=== PATIENT | male | born 1965 | race Caucasian/White ===

== ENCOUNTER 2017-07-24 22:02 | Emergency (ER) | payer SELFPAY ==
[~2017-07-24] VITALS: Ht 175.3 cm; Wt 89.1 kg
[2017-07-24 22:04] VITALS: BP 144/100; PULSE 95; RESP 20; TEMP 98.3; O2SAT 97
[2017-07-24] MEDS ORDERED: SERO25TA PO (22:20)
[2017-07-24] MEDS ORDERED: CLON1 PO (22:20)
[2017-07-24] MEDS ORDERED: DEPA250T2 PO (22:20)
[2017-07-24 22:22] VITALS: BP 136/90; PULSE 95; RESP 20; O2SAT 97
[2017-07-24] MEDS ORDERED: SODIUM CHLORIDE 0.9% FLUSH 10 ML FLUSH IVF PRN (22:30)
--- NOTE | 2017-07-24 22:47 | RADRPT ---
EXAM DATE: 07/24/2017 10:41 PM EDT AGE/SEX: 52 years / Male INDICATIONS: Chest pain. CLINICAL DATA: This is the patient's initial encounter. Patient reports that signs and symptoms have been present for 1 day and indicates a pain score of Nonresponsive. MEDICAL/SURGICAL HISTORY: . Unobtainable. . Unobtainable. COMPARISON: No prior [facility] exams available for comparison. FINDINGS: A single AP view of the chest demonstrates the lungs to be symmetrically aerated without evidence of mass, infiltrate or effusion. Minimal linear scarring or atelectasis left lung base. The cardiomedias tinal contours are unremarkable. Osseous structures are intact. CONCLUSION: Minimal left basilar scarring or atelectasis. Exam otherwise unremarkable. Electronically signed by: Benigno Hermosillo MD 07/24/2017 10:45 PM EDT
[2017-07-24 22:50] LABS: AUTOMATED NEUTROPHIL # 6.3 TH/MM3 (1.8-7.7); BASOPHIL # 0.1 TH/MM3 (0-0.2); BASOPHIL % 0.6 % (0.0-2.0); EOSINOPHIL # 0.1 TH/MM3 (0-0.4); EOSINOPHIL % 1.5 % (0.0-4.0); HEMATOCRIT 41.4 % (39.0-51.0); HEMOGLOBIN 13.9 GM/DL (13.0-17.0); LYMPH % 19.1 % (9.0-44.0); LYMPHOCYTE # 1.8 TH/MM3 (1.0-4.8); MEAN CELL VOLUME 92.3 FL (80.0-100.0); MEAN CORPUSCULAR HEMOGLOBIN 31.1 PG (27.0-34.0); MEAN CORPUSCULAR HGB CONC 33.7 % (32.0-36.0); MEAN PLATELET VOLUME 8.8 FL (7.0-11.0); MONO % 11.6 % (0.0-8.0); MONOCYTE # 1.1 TH/MM3 (0-0.9); NEUT % 67.2 % (16.0-70.0); PLATELET COUNT 208 TH/MM3 (150-450); RED BLOOD COUNT 4.48 MIL/MM3 (4.50-5.90); RED CELL DISTRIBUTION WIDTH 14.6 % (11.6-17.2); WHITE BLOOD COUNT 9.4 TH/MM3 (4.0-11.0)
[2017-07-24 23:06] LABS: BACTERIA, URINE RARE /hpf; BLOOD, URINE NEG (NEG); GLUCOSE,URINE NEG (NEG); KETONE, URINE 40 mg/dL (NEG); MUCUS URINE FEW /lpf (OCC); NITRITE,URINE NEG (NEG); PH, URINE 5.5 (5.0-8.5); URINE COLOR YELLOW (YELLW/STRAW); URINE LEUKOCYTE ESTERASE NEG (NEG)
[2017-07-24 23:10] LABS: BILIRUBIN, URINE NEG (NEG)
[2017-07-24 23:24] LABS: ALKALINE PHOSPHATASE 61 U/L (45-117); TOTAL BILIRUBIN ADULT 0.7 MG/DL (0.2-1.0); TOTAL PROTEIN 8.6 GM/DL (6.4-8.2); TROPONIN I LESS THAN 0.02 NG/ML (0.02-0.05)
--- NOTE | 2017-07-24 23:25 | PD ---
HPI Chief Complaint: Chest Pain Time Seen by Provider: 22:19 Travel History International Travel<30 days: No Contact w/Intl Traveler<30days: No Traveled to known affect area: No History of Present Illness HPI Patient is a 52-year-old male presenting to the emergency department for evaluation of chest pain. He states he feels as if something is inside of his chest moving around. He relates it to carpal tunnel surgery that he had years ago. He states he feels as if he is been violated, he reports that he lost time when he was taken away for several days. The chest pain has been ongoing for some time. He denies any radiation of the chest pain. He denies any nausea , vomiting, diaphoresis, shortness of breath, headache. He reports a remote history of methamphetamine use but states it was over a year ago. He denies any visual or auditory hallucinations. Patient does not rate his pain. He is vague in his symptom description. His thoughts are not organized. PFSH Past Medical History Bipolar Disorder: Yes Diabetes: Yes Patient Takes Glucophage: No Psychiatric: Yes Tetanus Vaccination: Unknown Influenza Vaccination: No Past Surgical History Other Surgery: Yes (carpal tunnel rt) Social History Alcohol Use: No Tobacco Use: Yes Substance Use: No Allergies-Medications (Allergen,Severity, Reaction): Coded Allergies: No Known Allergies (Verified Allergy, Unknown, 07/24/17) Reported Meds & Prescriptions Reported Meds & Active Scripts Active Reported Klonopin (Clonazepam) 1 Mg Tab 1 Mg PO TID Seroquel (Quetiapine Fumarate) 25 Mg Tab 25 Mg PO HS Depakote DR (Divalproex Sodium) 250 Mg Tabdr 250 Mg PO BID Review of Systems Except as stated in HPI: all other systems reviewed are Neg HENT: No: Headaches Cardiovascular: Positive: Chest Pain or Discomfort Respiratory: No: Shortness of Breath Gastrointestinal: No: Nausea Musculoskeletal: No: Myalgias Neurologic: No: Dizziness, Syncope Psychiatric: Positive: Disorder of Thought, Mood Disorder Physical Exam Narrative GENERAL: Well-developed, well-nourished, alert male. Presenting in no acute distress. SKIN: Warm and dry. HEAD: Atraumatic. Normocephalic. EYES: Pupils equal and round. No scleral icterus. No injection or drainage. ENT: No nasal bleeding or discharge. Mucous membranes pink and moist. NECK: Trachea midline. No JVD. CARDIOVASCULAR: Regular rate and rhythm. RESPIRATORY: No accessory muscle use. Clear to auscultation. Breath sounds equal bilaterally. GASTROINTESTINAL: Abdomen soft, non-tender, nondistended. Hepatic and splenic margins not palpable. MUSCULOSKELETAL: Extremities without clubbing, cyanosis, or edema. No obvious deformities. NEUROLOGICAL: Awake and alert. No obvious cranial nerve deficits. Motor grossly within normal limits. Five out of 5 muscle strength in the arms and legs. Normal speech. PSYCHIATRIC: Appropriate mood and affect; insight and judgment normal. Disorganized thoughts, appears to have a level of paranoia. Data Data Last Documented VS Vital Signs Date Time Temp Pulse Resp B/P (MAP) Pulse Ox O2 Delivery O2 Flow Rate FiO2 07/24/17 22:22 95 20 136/90 (105) 97 Room Air 07/24/17 22:04 98.3 Orders Orders Complete Blood Count With Diff (07/24/17 22:28) Comprehensive Metabolic Panel (07/24/17 22:28) Thyroid Stimulating Hormone (07/24/17 22:28) Urinalysis - C+S If Indicated (07/24/17 22:28) Iv Access Insert/Monitor (07/24/17 22:28) Ecg Monitoring (07/24/17 22:28) Valproic Acid (Depakene) (07/24/17 22:28) Psych Screen (07/24/17 22:28) Sodium Chloride 0.9% Flush (Ns Flush) (07/24/17 22:30) Drug Screen, Random Urine (07/24/17 22:28) Alcohol (Ethanol) (07/24/17 22:28) Salicylates (Aspirin) (07/24/17 22:28) Tylenol (Acetaminophen) (07/24/17 22:28) Troponin I (07/24/17 22:28) Ckmb (Isoenzyme) Profile (07/24/17 22:28) Electrocardiogram (07/24/17 ) Chest, Single Ap (07/24/17 ) CKMB (07/24/17 22:37) CKMB% (07/24/17 22:37) Sodium Chlor 0.9% 1000 Ml Inj (Ns 1000 M (07/25/17 00:00) Labs Laboratory Tests Test 07/24/17 22:37 White Blood Count 9.4 TH/MM3 Red Blood Count 4.48 MIL/MM3 Hemoglobin 13.9 GM/DL Hematocrit 41.4 % Mean Corpuscular Volume 92.3 FL Mean Corpuscular Hemoglobin 31.1 PG Mean Corpuscular Hemoglobin Concent 33.7 % Red Cell Distribution Width 14.6 % Platelet Count 208 TH/MM3 Mean Platelet Volume 8.8 FL Neutrophils (%) (Auto) 67.2 % Lymphocytes (%) (Auto) 19.1 % Monocytes (%) (Auto) 11.6 % Eosinophils (%) (Auto) 1.5 % Basophils (%) (Auto) 0.6 % Neutrophils # (Auto) 6.3 TH/MM3 Lymphocytes # (Auto) 1.8 TH/MM3 Monocytes # (Auto) 1.1 TH/MM3 Eosinophils # (Auto) 0.1 TH/MM3 Basophils # (Auto) 0.1 TH/MM3 CBC Comment DIFF FINAL Differential Comment Urine Color YELLOW Urine Turbidity CLEAR Urine pH 5.5 Urine Specific [place] 1.033 Urine Protein 30 mg/dL Urine Glucose (UA) NEG mg/dL Urine Ketones 40 mg/dL Urine Occult Blood NEG Urine Nitrite NEG Urine Bilirubin NEG Urine Urobilinogen 2.0 MG/DL Urine Leukocyte Esterase NEG Urine RBC 1 /hpf Urine WBC 1 /hpf Urine Bacteria RARE /hpf Urine Mucus FEW /lpf Microscopic Urinalysis Comment CULT NOT INDICATED Blood Urea Nitrogen 35 MG/DL Creatinine 0.92 MG/DL Random Glucose 66 MG/DL Total Protein 8.6 GM/DL Albumin 3.9 GM/DL Calcium Level 8.7 MG/DL Alkaline Phosphatase 61 U/L Aspartate Amino Transf (AST/SGOT) 38 U/L Alanine Aminotransferase (ALT/SGPT) 32 U/L Total Bilirubin 0.7 MG/DL Sodium Level 141 MEQ/L Potassium Level 3.5 MEQ/L Chloride Level 107 MEQ/L Carbon Dioxide Level 22.5 MEQ/L Anion Gap 12 MEQ/L Estimat Glomerular Filtration Rate 87 ML/MIN Total Creatine Kinase 551 U/L Creatine Kinase MB 5.3 NG/ML Creatine Kinase MB % 1.0 % Troponin I LESS THAN 0.02 NG/ML Thyroid Stimulating Hormone 3rd Gen 0.890 uIU/ML Salicylates Level 3.1 MG/DL Urine Opiates Screen NEG Acetaminophen Level LESS THAN 2.0 MCG/ML Urine Barbiturates Screen NEG Valproic Acid (Depakene) Level 7 MCG/ML Urine Amphetamines Screen POS Urine Benzodiazepines Screen NEG Urine Cocaine Screen NEG Urine Cannabinoids Screen NEG Ethyl Alcohol Level LESS THAN 3 MG/DL MDM Medical Decision Making Medical Screen Exam Complete: Yes Emergency Medical Condition: Yes Interpretation(s) Last Impressions Chest X-Ray 07/24/17 0000 Signed Impressions: CONCLUSION: Minimal left basilar scarring or atelectasis. Exam otherwise unremarkable. Laboratory Tests Test 07/24/17 22:37 White Blood Count 9.4 TH/MM3 Red Blood Count 4.48 MIL/MM3 Hemoglobin 13.9 GM/DL Hematocrit 41.4 % Mean Corpuscular Volume 92.3 FL Mean Corpuscular Hemoglobin 31.1 PG Mean Corpuscular Hemoglobin Concent 33.7 % Red Cell Distribution Width 14.6 % Platelet Count 208 TH/MM3 Mean Platelet Volume 8.8 FL Neutrophils (%) (Auto) 67.2 % Lymphocytes (%) (Auto) 19.1 % Monocytes (%) (Auto) 11.6 % Eosinophils (%) (Auto) 1.5 % Basophils (%) (Auto) 0.6 % Neutrophils # (Auto) 6.3 TH/MM3 Lymphocytes # (Auto) 1.8 TH/MM3 Monocytes # (Auto) 1.1 TH/MM3 Eosinophils # (Auto) 0.1 TH/MM3 Basophils # (Auto) 0.1 TH/MM3 CBC Comment DIFF FINAL Differential Comment Urine Color YELLOW Urine Turbidity CLEAR Urine pH 5.5 Urine Specific [place] 1.033 Urine Protein 30 mg/dL Urine Glucose (UA) NEG mg/dL Urine Ketones 40 mg/dL Urine Occult Blood NEG Urine Nitrite NEG Urine Bilirubin NEG Urine Urobilinogen 2.0 MG/DL Urine Leukocyte Esterase NEG Urine RBC 1 /hpf Urine WBC 1 /hpf Urine Bacteria RARE /hpf Urine Mucus FEW /lpf Microscopic Urinalysis Comment CULT NOT INDICATED Salicylates Level 3.1 MG/DL Urine Opiates Screen NEG Urine Barbiturates Screen NEG Urine Amphetamines Screen POS Urine Benzodiazepines Screen NEG Urine Cocaine Screen NEG Urine Cannabinoids Screen NEG Vital Signs Date Time Temp Pulse Resp B/P (MAP) Pulse Ox O2 Delivery O2 Flow Rate FiO2 07/24/17 22:22 95 20 136/90 (105) 97 Room Air 07/24/17 22:20 Room Air 07/24/17 22:04 98.3 95 20 144/100 (115) 97 Differential Diagnosis ACS versus mood disorder versus substance abuse versus malingering versus other Narrative Course Patient is a 52-year-old male presenting to emergency department for evaluation of chest pain secondary to medical manipulation. Patient is fidgety and symptoms are vague. He denies any radiation of the pain, shortness of breath, chest pressure, tightness. He states the chest pain feels as if something is running around inside of his chest. He reported that he has been taken away and things were done to him but he cannot say where he was taken to. He reports that [facility] last night and they made him stay naked in front of all the other inmates. He was not sure why he was even arrested. Cardiac workup was initiated however symptoms appear more related to a psychiatric etiology or substance abuse. Psych screen has also ordered and pending. Patient's thoughts are disorganized and he appears paranoid and having hallucinations. EKG is sinus rhythm, CBC is unremarkable, chemistry with a BUN of 35, CK 551, troponin is negative. Urine drug screen is positive for amphetamines. Alcohol level is negative. Urinalysis is unremarkable. Patient was given a liter of IV fluids. He requested something to eat and drink because he feels easily dehydrated. Patient is medically cleared for psychiatric evaluation at this time. Diagnosis Primary Impression: Medical clearance for psychiatric admission Condition: Stable Anu Zelaya July 24, 2017 23:25
[2017-07-24 23:31] LABS: ALBUMIN 3.9 GM/DL (3.4-5.0); ALT (GPT) 32 U/L (12-78); AST (GOT) 38 U/L (15-37); BICARBONATE 22.5 MEQ/L (21.0-32.0); BLOOD UREA NITROGEN 35 MG/DL (7-18); CALCIUM 8.7 MG/DL (8.5-10.1); CHLORIDE 107 MEQ/L (98-107); CREATININE 0.92 MG/DL (0.60-1.30); GLOMERULAR FILTRATION RATE 87 ML/MIN (>89); GLUCOSE,RANDOM 66 MG/DL (74-106); SODIUM (NA) 141 MEQ/L (136-145)
[2017-07-24 23:42] LABS: ACETAMINOPHEN LESS THAN 2.0 MCG/ML (10.0-30.0)
[2017-07-25] MEDS ORDERED: SODIUM CHLOR 0.9% 1000 ML INJ 1,000 ML IV ONE
--- NOTE | 2017-07-25 06:13 | PD ---
Physical Exam Date Seen by Provider: July 25, 2017 Time Seen by Provider: 06:10 Narrative For full H&P please see my note previously. Data Data Last Documented VS Vital Signs Date Time Temp Pulse Resp B/P (MAP) Pulse Ox O2 Delivery O2 Flow Rate FiO2 07/25/17 05:51 07/24/17 22:22 95 20 97 Room Air 07/24/17 22:04 98.3 Orders Orders Complete Blood Count With Diff (07/24/17 22:28) Comprehensive Metabolic Panel (07/24/17 22:28) Thyroid Stimulating Hormone (07/24/17 22:28) Urinalysis - C+S If Indicated (07/24/17 22:28) Iv Access Insert/Monitor (07/24/17 22:28) Ecg Monitoring (07/24/17 22:28) Valproic Acid (Depakene) (07/24/17 22:28) Psych Screen (07/24/17 22:28) Sodium Chloride 0.9% Flush (Ns Flush) (07/24/17 22:30) Drug Screen, Random Urine (07/24/17 22:28) Alcohol (Ethanol) (07/24/17 22:28) Salicylates (Aspirin) (07/24/17 22:28) Tylenol (Acetaminophen) (07/24/17 22:28) Troponin I (07/24/17 22:28) Ckmb (Isoenzyme) Profile (07/24/17 22:28) Electrocardiogram (07/24/17 ) Chest, Single Ap (07/24/17 ) CKMB (07/24/17 22:37) CKMB% (07/24/17 22:37) Sodium Chlor 0.9% 1000 Ml Inj (Ns 1000 M (07/25/17 00:00) Labs Laboratory Tests Test 07/24/17 22:37 White Blood Count 9.4 TH/MM3 Red Blood Count 4.48 MIL/MM3 Hemoglobin 13.9 GM/DL Hematocrit 41.4 % Mean Corpuscular Volume 92.3 FL Mean Corpuscular Hemoglobin 31.1 PG Mean Corpuscular Hemoglobin Concent 33.7 % Red Cell Distribution Width 14.6 % Platelet Count 208 TH/MM3 Mean Platelet Volume 8.8 FL Neutrophils (%) (Auto) 67.2 % Lymphocytes (%) (Auto) 19.1 % Monocytes (%) (Auto) 11.6 % Eosinophils (%) (Auto) 1.5 % Basophils (%) (Auto) 0.6 % Neutrophils # (Auto) 6.3 TH/MM3 Lymphocytes # (Auto) 1.8 TH/MM3 Monocytes # (Auto) 1.1 TH/MM3 Eosinophils # (Auto) 0.1 TH/MM3 Basophils # (Auto) 0.1 TH/MM3 CBC Comment DIFF FINAL Differential Comment Urine Color YELLOW Urine Turbidity CLEAR Urine pH 5.5 Urine Specific [place] 1.033 Urine Protein 30 mg/dL Urine Glucose (UA) NEG mg/dL Urine Ketones 40 mg/dL Urine Occult Blood NEG Urine Nitrite NEG Urine Bilirubin NEG Urine Urobilinogen 2.0 MG/DL Urine Leukocyte Esterase NEG Urine RBC 1 /hpf Urine WBC 1 /hpf Urine Bacteria RARE /hpf Urine Mucus FEW /lpf Microscopic Urinalysis Comment CULT NOT INDICATED Blood Urea Nitrogen 35 MG/DL Creatinine 0.92 MG/DL Random Glucose 66 MG/DL Total Protein 8.6 GM/DL Albumin 3.9 GM/DL Calcium Level 8.7 MG/DL Alkaline Phosphatase 61 U/L Aspartate Amino Transf (AST/SGOT) 38 U/L Alanine Aminotransferase (ALT/SGPT) 32 U/L Total Bilirubin 0.7 MG/DL Sodium Level 141 MEQ/L Potassium Level 3.5 MEQ/L Chloride Level 107 MEQ/L Carbon Dioxide Level 22.5 MEQ/L Anion Gap 12 MEQ/L Estimat Glomerular Filtration Rate 87 ML/MIN Total Creatine Kinase 551 U/L Creatine Kinase MB 5.3 NG/ML Creatine Kinase MB % 1.0 % Troponin I LESS THAN 0.02 NG/ML Thyroid Stimulating Hormone 3rd Gen 0.890 uIU/ML Salicylates Level 3.1 MG/DL Urine Opiates Screen NEG Acetaminophen Level LESS THAN 2.0 MCG/ML Urine Barbiturates Screen NEG Valproic Acid (Depakene) Level 7 MCG/ML Urine Amphetamines Screen POS Urine Benzodiazepines Screen NEG Urine Cocaine Screen NEG Urine Cannabinoids Screen NEG Ethyl Alcohol Level LESS THAN 3 MG/DL [facility] Medical Record Reviewed: Yes Supervised Visit with MANUELA: No Narrative Course Patient woke up at approximately 6 AM stating that his nutritional needs have been met and he was ready to be discharged. Patient had no suicidal homicidal ideations. Patient was in the emergency department voluntarily. Patient was discharged. He was encouraged return to emergency department for any new or worsening symptoms. Diagnosis Primary Impression: Substance abuse Referrals: Primary Care Physician Patient Instructions: General Instructions Departure Forms: Tests/Procedures Additional Instruction: Follow-up with your primary doctor Return to emergency department for any new or worsening symptoms Stop using methamphetamines Med/Other Pt SpecificInfo: No Change to Meds Disposition: 01 DISCHARGE HOME Condition: Stable Anu Zelaya July 25, 2017 06:13
--- NOTE | 2017-07-25 13:59 | EKG ---
Date Performed: 07/24/2017 Time Performed: 22:52:31 PTAGE: 52 years EKG: Sinus rhythm NORMAL ECG NO PREVIOUS TRACING DOCTOR: Khang Dill Interpretating Date/Time 07/25/2017 13:58:24
== END 2017-07-25 05:53 | disposition home or self-care (01) ==
LOC: NEPD 22:02
DX: F15.10 Other stimulant abuse, uncomplicated (principal); R07.9 Chest pain, unspecified; F31.9 Bipolar disorder, unspecified; E11.9 Type 2 diabetes mellitus without complications; Z72.0 Tobacco use
CPT/HCPCS: 71045; 80053; 80164; 80307; 81001; 82550; 82552; 84443; 84484; 85025; 93005; 96360; 99285; J7030

== ENCOUNTER 2017-07-25 23:55 | Emergency (ER) | payer SELFPAY ==
[~2017-07-25 23:55] MED LIST: CLON1 PO; DEPA250T2 PO; SERO25TA PO
[2017-07-26 00:03] VITALS: BP 142/96; PULSE 88; RESP 20; TEMP 98.4; O2SAT 98
--- NOTE | 2017-07-26 00:18 | PD ---
HPI Chief Complaint: Psychiatric Symptoms Time Seen by Provider: 00:17 Travel History International Travel<30 days: No Contact w/Intl Traveler<30days: No Traveled to known affect area: No History of Present Illness HPI Patient is a 52-year-old male presenting to the emergency department for evaluation of foot pain because he has been walking all day. Patient states he went to [place] and then came to [facility] which is why his feet hurt. He denies any injury or trauma. He states he came here with Rosy. He denies any suicidal or homicidal ideations. Patient states he is homeless and does not know how to be homeless. He reports his pain is a 5 out of 10 and states they are sore and aching. Pain is worse with ambulation. PFSH Past Medical History Bipolar Disorder: Yes Diabetes: Yes Psychiatric: Yes Past Surgical History Other Surgery: Yes (carpal tunnel rt) Social History Alcohol Use: No Tobacco Use: Yes Substance Use: Yes Allergies-Medications (Allergen,Severity, Reaction): Coded Allergies: No Known Allergies (Verified Allergy, Unknown, 07/26/17) Reported Meds & Prescriptions Reported Meds & Active Scripts Active Reported Klonopin (Clonazepam) 1 Mg Tab 1 Mg PO TID Seroquel (Quetiapine Fumarate) 25 Mg Tab 25 Mg PO HS Depakote DR (Divalproex Sodium) 250 Mg Tabdr 250 Mg PO BID Review of Systems Except as stated in HPI: all other systems reviewed are Neg Musculoskeletal: Positive: Pain Physical Exam Narrative GENERAL: Well-developed, well-nourished, alert male. Presenting in no acute distress. SKIN: Warm and dry. HEAD: Normocephalic. EYES: No scleral icterus. No injection or drainage. NECK: Supple, trachea midline. No JVD or lymphadenopathy. CARDIOVASCULAR: Regular rate and rhythm without murmurs, gallops, or rubs. RESPIRATORY: Breath sounds equal bilaterally. No accessory muscle use. GASTROINTESTINAL: Abdomen soft, non-tender, nondistended. MUSCULOSKELETAL: No cyanosis, or edema. No obvious deformities. 2+ dorsalis pedal pulses. BACK: Nontender without obvious deformity. No CVA tenderness. Data Data Last Documented VS Vital Signs Date Time Temp Pulse Resp B/P (MAP) Pulse Ox O2 Delivery O2 Flow Rate FiO2 07/26/17 00:03 98.4 88 20 142/96 (111) 98 MDM Medical Decision Making Medical Screen Exam Complete: Yes Emergency Medical Condition: Yes Medical Record Reviewed: Yes Interpretation(s) Vital Signs Date Time Temp Pulse Resp B/P (MAP) Pulse Ox O2 Delivery O2 Flow Rate FiO2 07/26/17 00:03 98.4 88 20 142/96 (111) 98 Differential Diagnosis Strain versus sprain versus myalgia versus malingering versus other Narrative Course Patient is a 52-year-old male presenting to emergency department for evaluation of foot pain. Patient was in the emergency department last night as well. He denies any suicidal homicidal ideations. He did test positive for methamphetamines. Patient has no shoes, he is not sure what he did with them. Patient was given 3 pairs of socks and Gatorade. He was advised to go to homeless [facility]. He was encouraged to return to emergency department for any new or worsening symptoms. He was advised to avoid methamphetamine use. A medical screening exam was performed: At the time of evaluation the presenting medical condition was determined not to be of an emergent nature. The patient was given the option of receiving additional care, but declined. Patient was given options for additional community resources from which to obtain care. The Patient Has Been advised to seek medical attention for their presenting complaint. The patient has been advised to return to the ER at any time if an emergent condition develops. Diagnosis Primary Impression: Encounter for medical screening examination Anu Zelaya July 26, 2017 00:18
== END 2017-07-26 02:23 | disposition left against medical advice (07) ==
LOC: NEPD 23:55
DX: M79.673 Pain in unspecified foot (principal)
CPT/HCPCS: 99281